=== PATIENT | female | born 1980 | race Caucasian/White ===

== ENCOUNTER 2025-05-02 10:50 | Emergency (ER) | payer OTHER, SELFPAY ==
--- NOTE | ~2025-05-02 | CT_ITS ---
EXAMINATION: CT soft tissue neck w con DATE: 05/02/2025 11:30 INDICATION: Possible peritonsillar abscess. TECHNIQUE: Computed tomography (CT) of the neck was performed with 75 mL Omnipaque-350 intravenous co ntrast. Automated exposure control and iterative reconstruction technique were employed. The dose-laurie gth product was 560.05 mGy-cm. COMPARISON: None FINDINGS: Orbits are normal. The paranasal sinuses are clear. Small right mastoid effusion. Left mastoid air ce lls and the bilateral middle ear cavities are clear. Submandibular and parotid glands are symmetric. Likely benign 1 cm right thyroid nodule. There are scattered normal-sized lymph nodes in the neck, no lymphadenopathy. Mild enlargement and striated enhancement pattern of the bilateral parapharyngeal t onsils which can be seen with tonsillitis. No evident abscess. Retropharyngeal soft tissues are unrem arkable as is the epiglottis and aryepiglottic folds. No masses identified. The vasculature is patent and normal in caliber. Airway is unremarkable. Superior mediastinum is unremarkable. Lung apices are normal. Likely positional straightening of the normal cervical lordosis with normal vertebral body and disc heights. IMPRESSION: 1. Bilateral parapharyngeal tonsils appear swollen with striated enhancement pattern typical of tonsi llitis but without evident abscess. Reviewed, dictated and finalized at location A. IMPRESSION: 1. Bilateral parapharyngeal tonsils appear swollen with striated enhancement pa ttern typical of tonsillitis but without evident abscess.
--- OUTSIDE RECORDS SUMMARY | 2025-05-02 10:53 | XMS_ITS | Clinical Summary ---
Author Organization [facility] [address] Address [address] [place] [address] Phone Care Team Providers Care Family Court Counsellor Name Role Phone Sukhwinder Zepeda MD Primary Care Provider [phone]- [phone] Allergies No known active allergies Medications escitalopram (LEXAPRO) 10 mg tablet Take 1 tablet (10 mg total) by mouth daily 30 tablet 4 0 Active Additional Information Patient not taking.Reported on 06/18/2020 amoxicillin 500 mg capsule Take 1 tablet/capsule (500 mg total) by mouth 2 (two) times a day 5 Active Active Problems Problem Noted Date Diagnosed Date Routine general medical exam ination at a health care facility 05/14/2020 Assessment & Plan (05/14/2020 7:12 PM CDT): Patient's history and physical completed health risk assessment health maintenance addressed. Patient will be referred a later date for well-woman exam. Patient's has seen a web analytics developer approximate 2 years ago in no acute problems at this time will update immunization on the next visit. 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 Patient on his 2 small children. She has evidence of anxiety depression which will be treated at this time. Laboratory studies will include CBC BMP TSH and B12. Panic attacks 05/14/2020 Assessment & Plan (06/18/2020 4:08 PM CDT): Patient advised me she is managing work better in a panic attacks are not a problem at this point Assessment & Plan (05/14/2020 7:15 PM CDT): Patient's panic attacks that occur directly related to work of distress issues with home. She has been like this all of her life a day to impact her quality life. She does not miss any work over these problems but she face is a monitor daily basis. Patient's concurrent depression plans at this time start on Lexapro 10 mg daily. Current moderate episode of major depressive disorder without prior episode 05/14/2020 Assessment & Plan (06/18/2020 4:07 PM CDT): Patient forms me she is doing well she is not taking medication. Her life is improved in she considers it manageable at this time. He she has no sleep problems she has no anti do not. Does have a little bit repetitive thoughts.. Patient will contact me again if she needs further treatment our discussion regarding mood disorder. Patient was advised symptoms of depression do reoccur prolonged may need to have further evaluation. Assessment & Plan (05/14/2020 7:17 PM CDT): Patient PHQ-9 score was 20 for this classifies as moderate to severe depression. Patient is a receptive to accept treatment which includes medication and counseling. Advised her referral to [facility] psychological services for counseling. Also advised to check with her insurance regarding provide a sed available.. Patient will be started on Lexapro 10 mg per day anticipate titrating up.. See this patient for follow-up in 1 month. Resolved Problems Problem Noted Date Diagnosed Date Resolved Date Mild episode of recurrent ma rosa maria depressive disorder 05/14/2020 05/14/2020 Encounters Date Type Department Care Team Description 05/02/2025 10:15 AM CDT Office Visit [facility] at [address] [address] Atilio Siegel NP Acute tonsillitis, unspecified etiology (Primary Dx); Tachycardia from Last 3 Months Social History Tobacco Use Types Packs/Day Years Used Date Smoking Tobacco: Light Smoker Smokeless Tobacco: Never PHQ-2 Answer Date Recorded PHQ-2 Total Score (If total score is 3 or more points, staff should administer the PHQ-9) 4 05/14/2020 Comments Unknown Sex and Gender Information Value Date Recorded Sex Assigned at Not on file Legal Sex Female 9:31 AM CDT Gender Identity Not on file Sexual Orientation Not on file Obstetrics History Last Filed Vital Signs Vital Sign Reading Time Taken Comments Blood Pressure 116/72 05/02/2025 10:15 AM CDT Pulse 115 05/02/2025 10:15 AM CDT Temperature 36.6 C (97.8 F) 05/02/2025 10:15 AM CDT Respiratory Rate 22 05/02/2025 10:15 AM CDT Oxygen Saturation 97% 05/02/2025 10:15 AM CDT Inhaled Oxygen Concentration - - Weight 85.3 kg (188 lb) 05/02/2025 10:15 AM CDT Height 160 cm (5' 3) 05/02/2025 10:15 AM CDT Body Mass Index 33.3 05/02/2025 10:15 AM CDT Plan of Treatment Health Maintenance Due Date Last Done Comments Breast Cancer Screening-Mammogram 1979 Cervical Cancer Screening 1979 Colon Cancer Screening-Colonoscopy 1979 Hepatitis C Screening 1979 DTaP/Tdap/Td Vaccine (1 - Tdap) 1990 Hepatitis B Screening 1997 Depression Screening 05/14/2021 05/14/2020 Regular Well Visit/Exam 18-64 05/14/2021 05/14/2020 Covid-19 Vaccine (3 - 2023-2 5 season) 2024 03/13/2021, 02/09/2021 Influenza Vaccine (Season Ended) 2025 HPV Vaccines Aged Out No longer eligi ble based on patient's age to complete this topic Pneumococcal vaccine <65 Aged Out No longer eligible based on patient's age to complete this topic Procedures Procedure Name Priority Date/Time Associated Diagnosis Comments POCT RAPID STREP Routine 05/02/2025 10:3 6 AM CDT Acute tonsillitis, unspecified etiology from Last 3 Months Results * POCT rapid strep A (05/02/2025 10:36 AM CDT) Rapid Strep A, POC Negative Negative Swab 05/02/2025 10:3 6 AM CDT Atilio Siegel CRITICAL CARE TRANSPORT NURSE POINT OF CARE TEST ORDERABLES F inal Result from Last 3 Months Insurance Care Teams Family Court Counsellor Relationship Specialty Start Date End Date Sukhwinder Zepeda MD PCP - General Internal Medicine 04/28/20
--- OUTSIDE RECORDS SUMMARY | 2025-05-02 10:54 | XMS_ITS | Clinical Summary ---
Author Organization [facility] Address [address] [place] [place] [address] Care Team Providers Care Picking Machine Operator Name Role Phone Unknown, Provider Primary Care Provider Unavaila ble Source Comments [facility],non-owned Affiliates and Associated Physician Practices is amultiple site organization consisting of ambulatory clinics and hospital sitesin [place], [place], [place] and [place]. This disclosure is being madepursuant to the Care Everywhere program and may not contain all information available regarding this patient. Last updated 18.[facility] Allergies No known active allergies Medications * Be aware that medications may not be up to date on this document. Alwaysverify current medications with the patient. No known medications Family History Medical History Relation Name Comments Diabetes Mother Relation Name Status Comments Mother Social History Tobacco Use Types Packs/Day Years Used Date Smoking Tobacco: Former Comments Unknown Sex and Gender Information Value Date Recorded Sex Assigned at Not on file Legal Sex Female 9:15 AM CDT Gender Identity Not on file Sexual Orientation Not on file Last Filed Vital Signs Vital Sign Reading Time Taken Comments Blood Pressure 132/86 09/22/2016 12:11 PM CDT Pulse 123 09/22/2016 12:11 PM CDT Temperature 37.7 C (99.9 F) 09/22/2016 12:11 PM CDT Respiratory Rate 16 09/22/2016 12:11 PM CDT Oxygen Saturation 95% 09/22/2016 12:11 PM CDT Inhaled Oxygen Concentration - - Weight 77.1 kg (170 lb) 09/22/2016 12:11 PM CDT Height 160 cm (5' 3) 09/22/2016 12:11 PM CDT Body Mass Index 30.11 09/22/2016 12:11 PM CDT Plan of Treatment Health Maintenance Due Date Last Done Comments COLOGUARD (AGES 45-75) - COL ON CA SCREENING 1979 COLON MONITORING 1979 COLONOSCOPY - COLON CA SCREENING 1979 CT COLONOGRAPHY - COLON CA SCREENING 1979 Colorectal Cancer Screening 1979 FIT - COLON CA SCREENING 1979 FLEX SIG - COLON CA SCREENING 1979 LIPID TESTING 1979 MAMMOGRAM 1979 HIV SCREENING 1994 HEPATITIS C SCREENING 06/27/1997 DTAP/TDAP/TD VACCINES (1 - Tdap) 1998 HEPATITIS B VACCINE (1 of 3 - 19+ 3-dose series) 1998 COVID-19 VACCINE ( - 2023-2 5 season) 2024 DEPRESSION SCREENING 11/27/2024 INFLUENZA VACCINE (Season Ended) 2025 ZOSTER VACCINE (1 of 2) 2029 HIB VACCINE Aged Out No longer eligi ble based on patient's age to complete this topic HPV VACCINE Aged Out No longer eligi ble based on patient's age to complete this topic MENINGOCOCCAL (Group B) VACC INE SHARED DECISION-MAKING Aged Out No longer eligibl e based on patient's age to complete this topic MENINGOCOCCAL GROUPS A/C/Y/W VACCINE Aged Out No longer eligible b ased on patient's age to complete this topic PNEUMOCOCCAL VACCINE Aged Out No long er eligible based on patient's age to complete this topic Care Teams Picking Machine Operator Relationship Specialty Start Date End Date Unknown, Provider PCP - General 09/22/16
--- OUTSIDE RECORDS SUMMARY | 2025-05-02 10:54 | XMS_ITS | Referral Summary ---
Author Organization [facility] [address] Address [address] [place] [address] Phone Care Team Providers Care Operating System Programmer Name Role Phone Sukhwinder Zepeda MD Primary Care Provider [phone]- [phone] Encounters Date Type Department Care Team Description 05/02/2025 10:15 AM CDT Office Visit [facility] at [address] [address] Atilio Siegel NP Acute tonsillitis, unspecified etiology (Primary Dx); Tachycardia from Last 3 Months Allergies No known active allergies Medications escitalopram [...] for well-woman exam. Patient's has seen a supply chain systems manager approximate 2 years ago in no acute problems at this time will update immunization on the next visit. 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 Patient [...] medication and counseling. Advised her referral to [facility] psychological services for counseling. Also advised to check with her insurance regarding provide a sed available.. Patient will be started on Lexapro 10 mg per day anticipate titrating up.. See this patient for follow-up in 1 month. Resolved Problems Problem Noted Date Diagnosed Date Resolved Date Mild episode of recurrent ma rosa maria depressive disorder 05/14/2020 05/14/2020 Social History Tobacco Use Types Packs/Day Years [...] 05/02/2025 10:15 AM CDT Plan of Treatment Not on file Procedures Procedure Name Priority Date/Time Associated Diagnosis Comments POCT RAPID STREP Routine 05/02/2025 10:3 6 AM CDT Acute tonsillitis, unspecified etiology from Last 3 Months Results * POCT rapid strep A (05/02/2025 10:36 AM CDT) Rapid Strep A, POC Negative Negative Swab 05/02/2025 10:3 6 AM CDT Atilio Siegel NP POINT OF CARE TEST ORDERABLES F inal Result from Last 3 Months Insurance [facility] [employer] Care Teams Operating System Programmer Relationship Specialty Start Date End Date Sukhwinder Zepeda MD PCP - General Internal Medicine 04/28/20
--- OUTSIDE RECORDS SUMMARY | 2025-05-02 10:54 | XMS_ITS | Encounter Summary ---
Author Organization [facility] Address [address] [place] [id number] Care Team Providers Care Garage Hand Name Role Phone Sukhwinder Zepeda MD Primary Care Provider [phone]- [phone] Reason for Visit * Reason Comments Sore Throat Patient here for c/o possible strep throat Encounter Details Date Type Department Care Team (Late st Contact Info) Description 05/02/2025 10:15 AM CDT Office Visit [facility] at [address] [address] Atilio Siegel NP [address] [place] [address] [address] [place] [address] Acute tonsillitis, unspecified etiology (Primary Dx); Tachycardia Social History Tobacco Use Types Packs/Day Years [...] on file Sexual Orientation Not on file documented as of this encounter Last Filed Vital Signs Vital Sign Reading [...] Mass Index 33.3 05/02/2025 10:15 AM CDT documented in this encounter Plan of Treatment Not on file documented as of this encounter Procedures Procedure Name Priority Date/Time Associated Diagnosis Comments POCT RAPID STREP Routine 05/02/2025 10:3 6 AM CDT Acute tonsillitis, unspecified etiology documented in this encounter Results * POCT rapid strep A (05/02/2025 10:36 AM CDT) Rapid Strep A, POC Negative Negative Swab 05/02/2025 10:3 6 AM CDT Atilio Siegel NP POINT OF CARE TEST ORDERABLES F inal Result documented in this encounter Visit Diagnoses Diagnosis Acute tonsillitis, unspecified etiology- Primary Tachycardia Unspecified tachycardia documented in this encounter Historical Medications * This list may reflect changes made after this encounter. amoxicillin 500 mg capsule Take 1 tablet/capsu le (500 mg total) by mouth 2 (two) times a day 04/30/2025 added in this encounter Care Teams Garage Hand Relationship Specialty Start Date End Date Sukhwinder Zepeda MD PCP - General Internal Medicine 04/28/20 documented as of this encounter
[2025-05-02 10:58] VITALS: BP 148/100; PULSE 112; RESP 16; TEMP 36.6; O2SAT 99
[2025-05-02 11:20] LABS: Basophils Percent Auto 0.2 % (0.2-1.2); Eosinophils Absolute Auto 0.2 K/mm3 (0-0.3); Eosinophils Percent Auto 1.6 % (0-4.4); Hematocrit 34.5 % (37.0-47.0); Hemoglobin 10.1 g/dL (12.0-15.0); Immature Granulocyte Absolute 0.04 K/mm3 (0.00-0.031); Immature Granulocyte Percent A 0.4 % (0-0.5); Lymphocytes Absolute Auto 1.74 K/mm3 (0.9-3.2); Lymphocytes Percent Auto 18.6 % (18.3-44.2); Mean Corpuscular HGB Conc 29.3 g/dl (32-36); Mean Corpuscular Hemoglobin 22.1 pg (26-34); Mean Corpuscular Volume 75.5 fl (80-100); Mean Platelet Volume 8.4 fl (7.4-10.4); Monocytes Percent Auto 11.1 % (2.6-8.5); Neutrophils Absolute Auto 6.4 K/mm3 (1.3-6.7); Neutrophils Percent Auto 68.1 % (45.5-73.1); Platelet Count Result 397 k/mm3 (150-375); Red Blood Count 4.57 M/mm3 (4.2-5.4); Red Cell Distribution Width 18.6 % (11.5-14.5); White Blood Count 9.4 K/mm3 (4.5-10.0)
[2025-05-02 11:27] LABS: Estimated CRCL calculation 73 ml/min; Estimated Glomerular Filt Rate > 60
[2025-05-02 11:35] LABS: Alanine Aminotransferase 14 U/L (6-35); Albumin Level 4.5 g/dL (3.5-5.1); Alkaline Phosphatase 103 U/L (38-126); Anion Gap 13 mmol/L (4-12); Aspartate Amino Transferase 25 U/L (14-36); Bilirubin,Total 0.3 mg/dL (0.2-1.3); Blood Urea Nitrogen 11 mg/dL (7-17); Calcium 9.2 mg/dL (8.4-10.2); Carbon Dioxide 23 mmol/L (22-30); Chloride 105 mmol/L (98-107); Estimated CRCL calculation 73 ml/min; Estimated Glomerular Filt Rate > 60; Glucose 103 mg/dL (65-110); Potassium 3.8 mmol/L (3.4-5.0); Sodium 141 mmol/L (137-145)
[2025-05-02 11:50] LABS: Hypochromasia 1+; Platelet Estimate Slightly Increased (Adequate)
[2025-05-02 11:51] LABS: Anisocytosis 1+; Schistocytes None Seen
--- NOTE | 2025-05-02 12:32 | ED_ITS ---
HPI - General Adult General Chief complaint: Unspecified Stated complaint: strep+, been on abx since 04/30, lump in neck? Time Seen by Provider: 05/02/25 10:54 History of Present Illness HPI narrative: Patient is a 44-year-old female who presents ER with sore throat and neck swelling. Recently diagnosed with strep throat. She has been on amoxicillin since 04/30/2025. Reports she is having increased swelling and discomfort with swelling. Still able tolerate oral secretions. Was referred here to be evaluated for peritonsillar abscess. Related Data Allergies Allergy/AdvReac Type Severity Reaction Status Date / Time pistachio nut Allergy Mild Hives Verified 05/02/25 11:10 peach fuzz Allergy Mild Hives Uncoded 05/02/25 11:10 Review of Systems 2 Review of Systems: All systems reviewed & are unremarkable except as noted in HPI and below Constitutional: Constitutional: Reports no additional constitutional complaints ENT: Reports system reviewed and no additional complaints, except as documented Cardiovascular: Cardiovascular: Reports no additional cardiovascular complaints Respiratory: Respiratory: Reports no additional respiratory complaints Gastrointestinal: Gastrointestinal: Reports no additional gastrointestinal complaints PMFSH Past Medical History Medical History (Updated 05/02/25 @ 18:55 by Isidoro Chris MD) Healthy female adult Exam 2 Narrative: GENERAL: Well-appearing, well-nourished, and in no acute distress. HEAD: Normocephalic, atraumatic. ENT: Mucous membranes moist. Posterior pharynx with evidence of pharyngitis and tonsillitis. White exudate noted bilaterally right worse than left. The tonsils are not kissing and patient is maintaining her airway and tolerating oral secretions. NECK: Enlarged lymph nodes anterior cervical chain are causing patient discomfort especially on the right side. CHEST: Clear to auscultation. No respiratory distress. HEART: Regular rate and rhythm. Normal peripheral pulses. EXTREMITIES: Normal range of motion. No edema. NEURO: Alert and oriented x3. PSYCH: Normal mood and affect. Course Course Emergency Course: No peritonsillar abscess. IV steroids for swelling. Will change amoxicillin to Augmentin. Patient also be given pain medication in liquid form to help ease her discomfort. Vital Signs Vital signs: Vital Signs Temperature 97.8 F 05/02/25 10:58 Pulse Rate 112 H 05/02/25 10:58 Respiratory Rate 16 05/02/25 10:58 Blood Pressure 148/100 H 05/02/25 10:58 Pulse Oximetry 99 05/02/25 10:58 Temperature 97.8 F 05/02/25 10:58 Pulse Rate 100 05/02/25 13:28 Respiratory Rate 16 05/02/25 13:28 Blood Pressure 138/84 05/02/25 13:28 Pulse Oximetry 98 05/02/25 13:28 Medical Decision Making Vital Signs Vital Signs: Vital Signs Temperature 97.8 F 05/02/25 10:58 Pulse Rate 112 H 05/02/25 10:58 Respiratory Rate 16 05/02/25 10:58 Blood Pressure 148/100 H 05/02/25 10:58 Pulse Oximetry 99 05/02/25 10:58 Temperature 97.8 F 05/02/25 10:58 Pulse Rate 100 05/02/25 13:28 Respiratory Rate 16 05/02/25 13:28 Blood Pressure 138/84 05/02/25 13:28 Pulse Oximetry 98 05/02/25 13:28 Lab Data 05/02/25 11:11 05/02/25 11:23 Labs: Lab Results 05/02/25 05/02/25 Range/Units 11:11 11:23 WBC 9.4 (4.5-10.0) K/mm3 RBC 4.57 (4.2-5.4) M/mm3 Hgb 10.1 L (12.0-15.0) g/dL Hct 34.5 L (37.0-47.0) % MCV 75.5 L (80-100) fl MCH 22.1 L (26-34) pg MCHC 29.3 L (32-36) g/dl RDW 18.6 H (11.5-14.5) % Plt Count 397 H (150-375) k/mm3 MPV 8.4 (7.4-10.4) fl Immature Gran % (Auto) 0.4 (0-0.5) % Neut % (Auto) 68.1 (45.5-73.1) % Lymph % (Auto) 18.6 (18.3-44.2) % Mower % (Auto) 11.1 H (2.6-8.5) % Eos % (Auto) 1.6 (0-4.4) % Baso % (Auto) 0.2 (0.2-1.2) % Lymph # (Auto) 1.74 (0.9-3.2) K/mm3 Mower # (Auto) 1.0 H (0.1-0.6) K/mm3 Eos # (Auto) 0.2 (0-0.3) K/mm3 Baso # (Auto) 0.0 (0.0-0.1) K/mm3 Abs Immat Gran (auto) 0.04 H (0.00-0.031) K/mm3 Absolute Neuts (auto) 6.4 (1.3-6.7) K/mm3 Absolute Nucleated RBC 0.000 (0.0-0.012) K/mm3 Band Neutrophils % Not Reportable Nucleated RBC % 0.0 (0.0-0.2) % Platelet Estimate Slightly increased (Adequate) Hypochromasia 1+ Anisocytosis 1+ Schistocytes None seen Sodium 141 (137-145) mmol/L Potassium 3.8 (3.4-5.0) mmol/L Chloride 105 (98-107) mmol/L Carbon Dioxide 23 (22-30) mmol/L Anion Gap 13 H (4-12) mmol/L BUN 11 (7-17) mg/dL Creatinine 0.89 0.90 (0.7-1.0) mg/dL Estim Creat Clear Calc 73 73 ml/min Estimated GFR > 60 > 60 (59 - ) Glucose 103 (65-110) mg/dL Calcium 9.2 (8.4-10.2) mg/dL Total Bilirubin 0.3 (0.2-1.3) mg/dL AST 25 (14-36) U/L ALT 14 (6-35) U/L Alkaline Phosphatase 103 (38-126) U/L Total Protein 9.0 H (6.3-8.2) g/dL Albumin 4.5 (3.5-5.1) g/dL Imaging Data Radiologist's impression: ITS Impressions Soft Tissue Neck CT 05/02/25 11:43 IMPRESSION: 1. Bilateral parapharyngeal tonsils appear swollen with striated enhancement pattern typical of tonsillitis but without evident abscess. Discharge Plan Discharge Clinical Impression: Acute tonsillitis Patient Disposition: Home Condition: Stable Instructions: Antibiotic Form, Strep Throat (ED) Additional Instructions: Return ER if you have difficulty breathing, you have difficulty swelling, or you have additional concerns. Patient Language: Korean Prescriptions: New amoxicillin-pot clavulanate 875-125 mg tablet 1 tablet PO Q12H Qty: 20 0RF hydrocodone-acetaminophen 7.5-325 mg/15 mL solution 10 ml PO Q6H PRN (Reason: pain) Qty: 200 0RF amoxicillin-pot clavulanate 875-125 mg tablet 1 tablet PO Q12H Qty: 20 0RF Follow-up/Referrals: Uziel Cotto MD [Physician] - 1 Week UNKNOWN,DOCTOR [Primary Care Provider] - 1 Week
[2025-05-02 13:28] VITALS: BP 138/84; PULSE 100; RESP 16; O2SAT 98
== END 2025-05-02 13:28 | disposition home or self-care (01) ==
PROVIDERS: Emergency Provider Emergency Medicine
DX: J03.90 Acute tonsillitis, unspecified (principal)
CPT/HCPCS: 36415; 70491; 80053; 85025; 99284; Q9967